=== PATIENT | female | born 1955 | race Caucasian/White ===

== ENCOUNTER → 2020-03-02 20:06 | Outpatient (ROUT) | payer MEDICARE, MEDICAID, SELFPAY ==
[2020-03-02 20:26] LABS: Aspartate Aminotransferase 27 IU/L (14-36); Blood Urea Nitrogen 16 mg/dL (7-17); Calcium 9.4 mg/dL (8.4-10.2); Carbon Dioxide 25 mmol/L (22-32); Chloride 104 mmol/L (98-107); Cholesterol 239 mg/dL (140-199); Estimated Glomerular Filt Rate > 60.0 mL/min (>60); Glucose 76 mg/dL (80-110); HDL Cholesterol 51 mg/dL (40-60); HEMOLYSIS < 15 (0-50); LDL Cholesterol Calculated 126 mg/dL (<100); Sodium 137 mmol/L (137-145); Triglycerides 308 mg/dL (35-150)
[2020-03-02 20:55] LABS: TSH w/ Reflex to FT4 0.88 uIU/mL (0.47-4.68)
== END ==
PROVIDERS: Family Provider Internal Medicine; PCP Internal Medicine; Visit Provider Internal Medicine
DX: I10 Essential (primary) hypertension (principal); E78.2 Mixed hyperlipidemia; E04.2 Nontoxic multinodular goiter
CPT/HCPCS: 80048; 80061; 84443; 84450

== ENCOUNTER → 2020-04-23 15:49 | Outpatient (CLI) | payer MEDICARE, MEDICAID, SELFPAY ==
--- NOTE | 2020-04-23 | DI.US.S_ITS ---
PROCEDURE: US THYROID INDICATIONS: Nontoxic multinodular goiter TECHNIQUE: Real-time scanning was performed of the thyroid gland, with image documentation. COMPARISON: [facility], US, THYROID, 08/03/2015, 10:18. FINDINGS: Right: Thyroid lobe measures 4.8 x 1.3 x 1.6 cm, and is homogeneous in echotexture. Left: Thyroid lobe measures 4.4 x 1.3 x 1.4 cm cm, and is homogenous in echotexture. Isthmus: 4 mm thick. Nodule number: 1 Location: Right upper pole Size: 1.0 x 0.6 x 0.9 cm Composition: Predominantly cystic Echogenicity: Hypoechoic Shape: Wider than tall Margins: Smooth Echogenic foci: None Total points: 2 ACR TI-RADS category: 2 Nodule number: 2 Location: Right midpole Size: 1.0 x 0.6 x 1.6 cm Composition: Solid Echogenicity: Hypoechoic Shape: Wider than tall Margins: Smooth Echogenic foci: None Total points: 3 ACR TI-RADS category: 3 Nodule number: 3 Location: Right lower pole Size: 2.4 x 1.1 x 1.7 cm Composition: Predominantly solid Echogenicity: Hypoechoic Shape: Wider than tall Margins: Smooth Echogenic foci: None Total points: 2 ACR TI-RADS category: 2 Nodule number: 4 Location: Left upper pole Size: 0.7 x 0.6 x 0.9 cm Composition: Predominantly solid Echogenicity: Hypoechoic Shape: Wider than tall Margins: Smooth Echogenic foci: None Total points: 2 ACR TI-RADS category: 2 Nodule number: 5 Location: Left mid pole Size: 1.2 x 0.7 x 0.7 cm Composition: Predominantly solid Echogenicity: Hypoechoic Shape: Wider than tall Margins: Smooth Echogenic foci: None Total points: 2 ACR TI-RADS category: 2 IMPRESSION: Multiple pulmonary nodules as described above. Nodules are stable to decreased in size when compared to the prior ultrasound from 08/03/2015. ACR TI-RADS definitions and recommendations: TI-RADS 1 (benign): 0 points. FNA not needed. TI-RADS 2 (not suspicious): 2 points. FNA not needed. TI-RADS 3 (mildly suspicious): 3 points. * FNA if 2.5 cm or larger, follow up if 1.5 cm or larger (at 1, 3, and 5 years). TI-RADS 4 (moderately suspicious): 4-6 points. * FNA if 1.5 cm or larger, follow up if 1 cm or larger (at 1, 2, 3, and 5 years). TI-RADS 5 (highly suspicious): 7 points or more. * FNA if 1 cm or larger, follow up if 0.5 cm or larger (every year for 5 years). Dictated by: Baltazar Lee M.D. on 04/23/2020 at 21:36 Approved by: Baltazar Lee M.D. on 04/23/2020 at 21:45
--- NOTE | 2020-04-23 | DI.MG.S_ITS ---
BILATERAL DIGITAL SCREENING MAMMOGRAM 3D/2D WITH CAD: 04/23/2020 CLINICAL: Routine screening. Comparison is made to exam dated: 06/25/2014 [facility]. There are scattered fibroglandular elements in both breasts. Current study was also evaluated with a Computer Aided Detection (CAD) system. No significant masses, calcifications, or other findings are seen in either breast. There has been no significant interval change. IMPRESSION: NEGATIVE There is no mammographic evidence of malignancy. A 1 year screening mammogram is recommended. This exam was interpreted at Station ID: [id number]. NOTE: For mammograms, a report in lay terms will be sent to the patient. Approximately 15% of breast malignancies will not be visualized mammographically. In the management of a palpable breast mass, a negative mammogram must not discourage biopsy of a clinically suspicious lesion. Electronically Signed By: Kathleen butler/lu:04/23/2020 17:09:10 letter sent: Normal Exam ACR BI-RADS Category 1: Negative 3341F
== END ==
PROVIDERS: Family Provider Internal Medicine; PCP Internal Medicine; Referring Provider Internal Medicine; Visit Provider Internal Medicine
DX: Z12.31 Encounter for screening mammogram for malignant neoplasm of breast (principal); E04.2 Nontoxic multinodular goiter
CPT/HCPCS: 76536; 77063; 77067

== ENCOUNTER → 2024-03-31 09:04 | Outpatient (CLI) | payer MEDICARE, SELFPAY ==
--- NOTE | 2024-03-31 09:05 | DI.RAD.S_ITS ---
PROCEDURE: XR DEXA AXIAL SKELETON INDICATIONS: POSTMENOPAUSAL STATUS COMPARISON: None. FINDINGS: Lumbar Spine: Bone mineral density is 0.944 g/cm2, T score -0.9, normal. Left Hip: Bone mineral density is 0.738 g/cm2, T score -1.7, osteopenia. Left Femoral Neck: Bone mineral density is 0.627 g/cm2, T score -2.0, osteopenia. Right Hip: Bone mineral density is 0.693 g/cm2, T score -2.0, osteopenia. Right Femoral Neck: Bone mineral density 0.599 g/cm2, T score -2.3, osteopenia. Fracture Risk Calculation (when applicable): 10-year fracture risk of a major osteoporotic fracture 13 percent and of a hip fracture 2.7 percent. (T score greater or equal to -1.0 to: NORMAL) (T score from -1.1 to -2.4: OSTEOPENIA) (T score less than or equal to -2.5: OSTEOPOROSIS) IMPRESSION: Osteopenia Follow-up guidelines as follows: Osteoporosis: Consider a repeat DEXA and Vertebral Fracture Assessment (VFA) exam in 2 years or sooner if medically necessary, to reassess this patient's status. Osteopenia: Consider a repeat DEXA in 2-3 years to reassess this patient's status, or if there is a new clinical indication. Normal: Consider a repeat DEXA in 5 years or sooner, or if there is a new clinical indication. All treatment decisions require clinical judgment and consideration of individual patient factors, including patient preferences, comorbidities, previous drug use, risk factors not captured in the FRAX model (e.g., frailty, falls, vitamin D deficiency, increased bone turnover, interval significant decline in bone density ) and possible under- or over-estimation of fracture risk by FRAX. In addition, the NOF Guide recommends that FDA-approved medical therapies be considered in postmenopausal women and men age >= 50 years with a: * Hip or vertebral (clinical or morphometric) fracture * T-score of <=-2.5 at the spine or hip * Ten-year fracture probability by FRAX of >= 3% for hip fracture or >=20% for major osteoporotic fracture. People with diagnosed cases of osteoporosis or at high risk for fracture should have regular bone mineral density tests. For patients eligible for Medicare, routine testing is allowed once every 2 years. The testing frequency can be increased to one year for patients who have rapidly progressing disease, those who are receiving or discontinuing medical therapy to restore bone mass, or have additional risk factors. Dictated by: Rico Del Toro M.D. on 03/31/2024 at 12:18 Approved by: Rico Del Toro M.D. on 03/31/2024 at 12:23
--- NOTE | 2024-03-31 09:05 | DI.MG.S_ITS ---
BILATERAL DIGITAL SCREENING MAMMOGRAM 3D/2D WITH CAD: 03/31/2024 CLINICAL: Routine screening. Comparison is made to exams dated: 04/23/2020 mammogram and 06/25/2014 mammogram - [facility]. There are scattered areas of fibroglandular density in both breasts (category b / 25%-50% glandular tissue). Current study was also evaluated with a Computer Aided Detection (CAD) system. No significant masses, calcifications, or other findings are seen in either breast. There has been no significant interval change. IMPRESSION: NEGATIVE There is no mammographic evidence of malignancy. A 1 year screening mammogram is recommended. Based on the Tyrer Cuzick model (a risk assessment model) the patient's lifetime risk is 5.5% and her 10 year risk is 3.3%. According to the ACR, ACS, and NCCN guidelines, an annual breast MRI exam along with mammogram is recommended if the patient's lifetime risk is 20% or greater. This exam was interpreted at Station ID: [id number]. NOTE: For mammograms, a report in lay terms will be sent to the patient. Approximately 15% of breast malignancies will not be visualized mammographically. In the management of a palpable breast mass, a negative mammogram must not discourage biopsy of a clinically suspicious lesion. Electronically Signed By: Joe machado/lu:03/31/2024 11:28:29 letter sent: Normal Exam ACR BI-RADS Category 1: Negative 3341F
== END ==
LOC: MAMMO 09:05
PROVIDERS: Family Provider Internal Medicine; PCP Internal Medicine; Referring Provider Internal Medicine; Visit Provider Internal Medicine
DX: Z12.31 Encounter for screening mammogram for malignant neoplasm of breast (principal); Z78.0 Asymptomatic menopausal state; R92.323 Mammographic fibroglandular density, bilateral breasts; M85.89 Other specified disorders of bone density and structure, multiple sites
CPT/HCPCS: 77063; 77067; 77080

== ENCOUNTER → 2024-11-03 15:37 | Outpatient (CLI) | payer MEDICARE, SELFPAY ==
--- NOTE | 2024-11-03 15:40 | DI.RAD.S_ITS ---
PROCEDURE: XR ABDOMEN MIN 2V INDICATIONS: CONSTIPATION TECHNIQUE: 2 views of the abdomen were acquired. COMPARISON: None. FINDINGS: Surgical changes and devices: None. Bowel: No pneumoperitoneum. Retained stool in a pattern of constipation. The bowel gas pattern is otherwise normal. Soft tissues: No masses; visualized solid organ contours appear normal in size. No suspicious abdominal calcifications. Bones: Lumbar levoscoliosis has its apex about the L3 vertebral body. No suspicious bony abnormalities. IMPRESSION: Pattern of constipation. No evidence of obstruction. Dictated by: Zaki Moss M.D. on 11/04/2024 at 3:44 Approved by: Zaki Moss M.D. on 11/04/2024 at 3:45
== END ==
PROVIDERS: Family Provider Internal Medicine; PCP Internal Medicine; Referring Provider Family Medicine; Visit Provider Family Medicine
DX: K59.00 Constipation, unspecified (principal)
CPT/HCPCS: 74019

== ENCOUNTER → 2024-11-11 06:54 | Outpatient (CLI) | payer MEDICARE, SELFPAY ==
--- NOTE | 2024-11-11 06:55 | DI.US.S_ITS ---
PROCEDURE: US ABDOMEN COMPLETE INDICATIONS: RUQ PAIN ? POST PRANDIAL. CONSTIPATION. XR 11/03/24. TECHNIQUE: Real-time scanning was performed of the abdominal and retroperitoneal organs, with image documentation. COMPARISON: [facility], US, ABDOMEN COMPLETE, 01/27/2016, 11:27. FINDINGS: Liver: Liver is normal in size and homogeneous in echotexture. The parenchyma is mildly hyperechoic. The left lobe is not well identified due to overlying bowel gas. Gallbladder: No gallstones are cholestasis. No wall thickening. No pericholecystic edema. Negative sonographic Dominguez sign. Two 5 mm gallbladder polyps at the fundus; no further follow-up necessary. Biliary ducts: Intrahepatic bile ducts are non-dilated. Extrahepatic bile duct caliber measures 7 mm. Normal is 6-7 mm or less in diameter, or 10 mm or less post-cholecystectomy. Pancreas: Obscured due to overlying bowel gas. Spleen: Spleen is normal in size and homogeneous in echotexture. Kidneys: Kidneys are normal in size and echotexture. Right kidney measures 10.6 cm long; left kidney measures 10.6 cm long. No hydronephrosis or nephrolithiasis. No solid masses. Aorta: Visualized aorta is normal in caliber at less than 3 cm. Iliacs: Proximal common iliac arteries are normal in caliber at less than 2.5 cm. IVC: Obscured due to overlying bowel gas. Miscellaneous: No free abdominal fluid. IMPRESSION: 1. Mild hepatic steatosis versus underlying hepatocellular disease. 2. Suboptimal evaluation of the pancreas. If there is concern for pancreatitis, consider correlation with serum lipase values. 3. No other acute sonographic abnormality of the abdomen. Dictated by: Zaki Vernon M.D. on 11/11/2024 at 14:17 Approved by: Zaki Vernon M.D. on 11/11/2024 at 14:19
== END ==
PROVIDERS: Family Provider Internal Medicine; PCP Internal Medicine; Referring Provider Family Medicine; Visit Provider Family Medicine
DX: R10.11 Right upper quadrant pain (principal)
CPT/HCPCS: 76700

== ENCOUNTER → 2024-11-22 07:53 | Outpatient (CLI) | payer MEDICARE, SELFPAY ==
--- NOTE | 2024-11-22 07:57 | DI.CT.S_ITS ---
PROCEDURE: CT ABDOMEN PELVIS W CON INDICATIONS: ABD PAIN TECHNIQUE: After the administration of intravenous contrast, axial sections acquired from the lung bases to the pubic symphysis. Coronal and sagittal reformats were performed. For radiation dose reduction, the following was used: automated exposure control, adjustment of mA and/or kV according to patient size. COMPARISON: [facility], , US ABDOMEN COMPLETE, 11/11/2024, 7:23. FINDINGS: Image quality: Diagnostic. Lower Chest: No pleural effusion. ABDOMEN: Liver: A few small hypodensities which are most likely benign cysts or hemangiomas. Peripheral present in 2019. Gallbladder: No radiopaque gallstones or wall thickening. Biliary ducts: No biliary dilation. Pancreas: No ductal dilation. Spleen: Size is within normal limits. Adrenal Glands: No adrenal nodules. Kidneys and Ureters: No hydronephrosis. Small nonobstructing right kidney stone measuring 0.5 cm. No solid mass. No complex renal cystic lesion which requires follow up. Stomach and Bowel: Normal colonic caliber, without significant wall thickening. Diverticulosis. No diverticulitis demonstrated. Normal appendix. No small bowel obstruction. Peritoneum: No abnormal intraperitoneal fluid. No free air. Ventral Wall: Tiny fat containing umbilical hernia. Abdominal Nodes: No retroperitoneal or mesenteric adenopathy by size criteria. Vessels: Aorta and inferior vena cava are normal in size. PELVIS: Pelvic Organs: Anteverted uterus. Partially calcified fibroid measuring approximately 4.1 cm. Bladder: No bladder wall thickening, accounting for underdistention. Pelvic Nodes: No enlarged lymph nodes. Miscellaneous: No inguinal hernias are seen. Bones: No aggressive osseous abnormality. Anterolisthesis L4 on L5 measuring 0.9 cm. IMPRESSION: 1. No acute inflammatory process. No free fluid. Normal appendix. 2. Small nonobstructing right kidney stone. Diverticulosis. Small uterine fibroid. Dictated by: Cory King M.D. on 11/23/2024 at 13:35 Approved by: Cory King M.D. on 11/23/2024 at 14:06
[2024-11-22 08:30] LABS: Estimated Glomerular Filt Rate > 60 mL/min (>60)
== END ==
PROVIDERS: Radiology Diagnostic Radiology; Family Provider Internal Medicine; PCP Internal Medicine; Referring Provider Family Medicine; Visit Provider Family Medicine
DX: N20.0 Calculus of kidney (principal); K57.90 Diverticulosis of intestine, part unspecified, without perforation or abscess without bleeding; D25.9 Leiomyoma of uterus, unspecified; R10.11 Right upper quadrant pain
CPT/HCPCS: 36415; 74177; 82565; Q9967

== ENCOUNTER 2024-12-25 12:00 | Day surgery (SDC) | payer MEDICARE, SELFPAY ==
--- NOTE | 2024-12-25 | PATH_ITS ---
[facility] Accession Number: [id number] No. of containers..03 Tissue . 01 Material submitted: . PART A: stomach - STOMACH, ANTRUM PART B: colon - COLON, CECAL POLYPS PART C: colon - COLON, ASCENDING POLYPS . 01 Diagnosis: Part A: STOMACH, ANTRUM: Gastric mucosa with mild chronic inflammation. No Helicobacter organisms identified. No intestinal metaplasia, dysplasia, or malignancy identified. . Part B: COLON, CECAL POLYPS: Tubular adenomas. Hyperplastic polyp. . Part C: COLON, ASCENDING POLYPS: Tubular adenomas. [facility] 12/31/2024 [facility] . 01 Electronically signed: . Lavell Alvarez MD, Pathologist NPI- [id number] . 01 Gross description: . Part A: STOMACH, ANTRUM: Received in formalin are 3 fragment(s) of rdz, soft tissue measuring 0.2 x 0.2 x 0.2 cm to 0.5 x 0.3 x 0.2 cm submitted entirely in 1 cassette(s) . Part B: COLON, CECAL POLYPS: Received in formalin are 3 fragment(s) of rdz, soft tissue measuring 0.2 x 0.2 x 0.2 cm to 0.3 x 0.2 x 0.2 cm submitted entirely in 1 cassette(s) . Part C: COLON, ASCENDING POLYPS: Received in formalin are multiple fragment(s) of rdz, soft tissue measuring 0.1 x 0.1 x 0.1 cm to 0.9 x 0.4 x 0.3 cm submitted entirely in 1 cassette(s) /[facility] 12/31/2024 [facility] . 01 Microscopic: . Part A: STOMACH, ANTRUM: An immunohistochemical stain was performed to evaluate for Helicobacter organisms and is negative. The control stains appropriately. * This test was developed and the performance characteristics were validated by [facility]. It has not been cleared or approved by the Food and Drug Administration. . 01 Pathologist provided ICD-10: D12.0, D12.2, K29.50 . 01 CPT . 156741, 495300, 342695, [id number] Specimen Comment: A courtesy copy of this report has been sent to [phone] Performed at: [address] [id number] MD Lavell Alvarez MD Phone: [phone]
[2024-12-25 12:17] VITALS: BP 147/91; PULSE 73; RESP 16; TEMP 36.6; O2SAT 96
[2024-12-25] MEDS: LACTATED RINGERS 1,000 ML 42 ML IV (12:29)
--- NOTE | 2024-12-25 13:32 | PM.PREOP ---
Pre-operative Note COVID-19 COVID-19 status: Not tested Interval Note History & Physical reviewed/Exam performed by Physician: Yes Changes to H&P: No ASA Class (for procedural sedation): II
--- NOTE | 2024-12-25 14:16 | P.OP.EGD&C_ITS ---
Operative Date/Time/Diagnoses Date of procedure: 12/25/24 Time of procedure: 14:16 Pre-op diagnosis: Abdominal pain and change in bowel habits Post-op diagnosis: same Procedure & Clinicians Study performed: EGD and colonoscopy Same procedure as scheduled: Yes Surgeon: Jean-Pierre Rothman Procedure Notes Procedure in detail: Surgeon: Jean-Pierre Rothman MD Anesthesia: Richard Garnica [employer] MANAGER Procedure in detail: A timeout was performed. A bite blocked was placed and monitors were attached to the patient. The patient was positioned in the left lateral decubitus position. Sedation was administered. Once the patient was sedated the endoscope was inserted through the bite block and passed through the esophagus and stomach and into the duodenum. We then withdrew the scope into the stomach. There was some mild antritis and random biopsies were taken from the antrum with cold forceps. The endoscope was retroflexed and a small hiatal hernia was noted. The endoscope was straightned and withdrawn into the esophagus. No abnormalities were found in the esophagus. EGD findings: Mild antritis and small hiatal hernia Next we repositioned the patient for a colonoscopy. A digital rectal exam was performed and was normal. The colonoscope was inserted and advanced to the cecum. The appendiceal orifice was identified and photographed. The scope was slowly withdrawn over greater than 6 minutes. There were 2 small polyps in the cecum removed with cold snare and sent together. There were 2 medium-sized polyps in the ascending colon, each about 5 mm and each removed with a cold snare and sent together. There was sigmoid colon diverticulosis. The scope was retroflexed in the rectum and internal hemorrhoids were noted. Colonoscopy findings: 2 small cecal polyps, 2 medium-sized ascending colon polyps about 5 mm each, diverticulosis greatest in the sigmoid colon internal hemorrhoids Total procedural EBL: 5 mL Scope withdrawal time: 13 minutes Sedation minutes: 33 minutes Post-procedure Disposition: PACU
[2024-12-25 14:18] VITALS: BP 98/57; PULSE 60; RESP 15; TEMP 36.6; O2SAT 99
[2024-12-25 14:23] VITALS: BP 108/58; PULSE 59; RESP 15; TEMP 36.6; O2SAT 99
[2024-12-25 14:32] VITALS: BP 124/74; PULSE 66; RESP 15; TEMP 36.6; O2SAT 99
== END 2024-12-25 14:55 | disposition home or self-care (01) ==
PROVIDERS: Family Provider Internal Medicine; PCP Internal Medicine; Referring Provider Surgery; Visit Provider Surgery
PROC: 0DJ08ZZ Inspection of Upper Intestinal Tract, Via Natural or Artificial Opening Endoscopic (ICD-10-PCS; CPT 45385; principal; 2024-12-25 13:45)
PROC: 0DJD8ZZ Inspection of Lower Intestinal Tract, Via Natural or Artificial Opening Endoscopic (ICD-10-PCS; CPT 45378; 2024-12-25 13:45)
DX: R19.4 Change in bowel habit (principal); R10.9 Unspecified abdominal pain; K29.50 Unspecified chronic gastritis without bleeding; K44.9 Diaphragmatic hernia without obstruction or gangrene; K57.30 Diverticulosis of large intestine without perforation or abscess without bleeding; K64.8 Other hemorrhoids; D12.0 Benign neoplasm of cecum; D12.2 Benign neoplasm of ascending colon
CPT/HCPCS: 45385; 43239; J2704; J3010